=== PATIENT | male | born 1975 | race Caucasian/White ===

== ENCOUNTER 2018-04-03 18:38 | Emergency (ER) | payer OTHER ==
[~2018-04-03] VITALS: Ht 177.8 cm; Wt 86.2 kg
--- NOTE | 2018-04-03 19:48 | ED GENERAL ADULT ---
History of Present Illness General Chief Complaint: Animal/Insect Bite Stated Complaint: BEE STING W/ CONFIRMED ALLERGY Source: patient Exam Limitations: no limitations Vital Signs & Intake/Output Vital Signs & Intake/Output Vital Signs Date Time Temp Pulse Resp B/P B/P Pulse O2 O2 Flow FiO2 Mean Ox Delivery Rate 04/03 2050 83 107/60 04/03 1841 98.6 92 18 140/75 99 Room Air Allergies Coded Allergies: MDX - Bee Venom (BEE VENOM) (Severe, ANAPHYLAXIS 04/14/13) Triage Note: 42 YO MALE TO TRIAGE FOR EVAL S/P BEE STING. PT ALLERGIX. USED EPIPEN ON L THIGH. STATES WAS STUNG UNDERNEATH CHIN. PT NOTED WITH SLIGHT FACIAL SWELLING. RA SATS 99%. NO SWELLING NTOED TO TOUNGE. PT TO ER ROOM 2. PA AT BEDSIDE FOR EVAL Triage Nurses Notes Reviewed? yes Onset: Abrupt Duration: minute(s): Timing: single episode today HPI: 42-year-old male with a known allergy to bee stings presenting with allergic reaction status post bee sting just prior to arrival. Patient reports he was working outside and was stung underneath his chin. He developed sudden onset of difficulty breathing and swallowing, administered his EpiPen to his left thigh. On arrival to the emergency department his airways intact, vital signs are within normal limits, he has slight residual dysphasia, but speaking in full sentences. He did not receive any other medications prior to arrival. Denies lip/tongue swelling, chest pain, abdominal pain, nausea, vomiting. (Jody Adam) Past History Travel History Traveled to [place] past 21 day No Medical History Any Pertinent Medical History? none Neurological: NONE EENT: NONE Cardiovascular: NONE Respiratory: NONE Gastrointestinal: NONE Hepatic: NONE Renal: NONE Musculoskeletal: NONE Psychiatric: NONE Endocrine: NONE Blood Disorders: NONE Cancer(s): NONE PACKAGING CLERK/Reproductive: NONE Surgical History Surgical History: non-contributory Psychosocial History What is your primary language [place] Tobacco Use: Never used Family History Hx Contributory? No (Jody Adam) Review of Systems Review of Systems Constitutional: Reports: no symptoms. EENTM: Reports: see HPI. Respiratory: Reports: see HPI. Cardiovascular: Reports: no symptoms. GI: Reports: no symptoms. Genitourinary: Reports: no symptoms. Musculoskeletal: Reports: no symptoms. Skin: Reports: no symptoms. Neurological/Psychological: Reports: no symptoms. Hematologic/Endocrine: Reports: no symptoms. Immunologic/Allergic: Reports: no symptoms. All Other Systems: Reviewed and Negative (Jody Adam) Physical Exam Physical Exam General Appearance: well developed/nourished, alert, awake, mild distress Comments: Gen.: Well-nourished, well-developed, mild distress Head: Normocephalic, atraumatic. Eyes: Normal inspection bilaterally Ears: Normal inspection bilaterally Nose: Normal inspection Throat: No angioedema, no oropharyngeal edema, speaking in full sentences Neck: Normal inspection Lungs: clear to auscultation bilaterally, normnal breath sounds Heart: regular rate and rhythm Abdomen: soft and non-tender Extremities: Normal inspection Neurologic: alert and oriented x3, steady gait Skin: warm and dry, no rashes or hives Psychiatric: Normal mood and affect, no apparent delusions or hallucinations, behavior appropriate Core Measures ACS in differential dx? No CVA/TIA Diagnosis: No Sepsis Present: No Sepsis Focused Exam Completed? No (Jody Adam) Progress Differential Diagnoses I considered the following diagnoses in my evaluation of the patient: [Allergic reaction versus anaphylaxis versus bee sting] Plan of Care: Orders Procedure Date/time Status EKG 04/03 1847 Active Patient is well-appearing on arrival with normal vital signs, no indication for repeat appendectomy. He was given IV Benadryl, Pepcid, Solu-Medrol. He reports resolution of his subjective throat tightness. He was monitored for 2 hours and remains well-appearing with normal vital signs. He is requesting to be discharged home. Counseled the patient and his family member that we usually watch patients for 4 hours status post epi administration. Shared decision making was performed and patient would like to be discharged home. His family member will continue watching him at home for an additional 2 hours. Were given strict return precautions. He has additional epi-pens at home and states that he does not need a refill at this time. He will continue using 25 mg of Benadryl every 6 hours for the next 24 hours. Patient was discussed with the ED attending. Initial ED EKG: normal sinus rhythm, no ST T wave changes (Jody Adam) Departure Departure Disposition: HOME OR SELF CARE Condition: Stable Clinical Impression Primary Impression: Allergic reaction Referrals: Ashok CAM,Gil Woods (PCP/Family) Additional Instructions: Continue using 25 mg of Benadryl every 6 hours for the next 24 hours. Keep your EpiPen on you at all times. Follow-up with your primary care provider for reevaluation. Return to the emergency department for any new or worsening symptoms. Departure Forms: Customer Survey General Discharge Information (Jody Adam) PA/DISTRICT LEADER Co-Sign Statement Statement: ED Attending supervision documentation- [] I saw and evaluated the patient. I have also reviewed all the pertinent lab results and diagnostic results. I agree with the findings and the plan of care as documented in the PA's/DISTRICT LEADER's documentation. [X] I have reviewed the ED Record and agree with the PA's/DISTRICT LEADER's documentation. [] Additions or exceptions (if any) to the PAs/DISTRICT LEADER's note and plan are summarized below: [] (Dewey Walker DO) Critical Care Note Critical Care Note Critical Care Time: 30-74 min (Jody Adam)
[2018-04-03 20:50] VITALS: BP 107/60
== END 2018-04-03 20:51 ==
LOC: ERH 18:38
DX: T63.441A Toxic effect of venom of bees, accidental (unintentional), initial encounter (principal)
CPT/HCPCS: 93005; 93010; 96374; 96375; J1200; J2930